=== PATIENT | female | born 1955 | race Caucasian/White ===

== ENCOUNTER → 2016-08-04 | Outpatient (CLI) | payer MEDICARE | LOC: KOH-I 11:04 | DX: J11.00 Influenza due to unidentified influenza virus with unspecified type of pneumonia (principal); J98.09 Other diseases of bronchus, not elsewhere classified | CPT/HCPCS: 71020 ==

== ENCOUNTER → 2016-08-31 | Outpatient (CLI) | payer MEDICARE ==
[~2016-08-31] VITALS: Ht 177.8 cm; Wt 93.0 kg
== END ==
LOC: OPSV 14:23
DX: D50.9 Iron deficiency anemia, unspecified (principal)
CPT/HCPCS: 96365; J1756; J7050

== ENCOUNTER → 2016-09-07 | Outpatient (CLI) | payer MEDICARE ==
[~2016-09-07] VITALS: Ht 177.8 cm; Wt 93.0 kg
== END ==
LOC: OPSV 14:58
DX: D50.9 Iron deficiency anemia, unspecified (principal)
CPT/HCPCS: 96365; J1756; J7050

== ENCOUNTER → 2016-10-01 | Outpatient (CLI) | payer MEDICARE ==
[~2016-10-01] VITALS: Ht 177.8 cm; Wt 93.0 kg
== END ==
LOC: OPSV 15:00
DX: D50.9 Iron deficiency anemia, unspecified (principal)
CPT/HCPCS: 96365; J1756; J7050

== ENCOUNTER 2021-05-04 07:13 | Emergency (ER) | payer MEDICARE, BC ==
[~2021-05-04 07:13] MED LIST: ACCUPRIL 10 MG10 MG PO; ASPIRIN81 MG PO; AUGMENTIN 875-1 EACH PO; BUPROPION XL150 MG PO; CARAFATE1 GM PO; CYMBALTA60 MG PO; DIABETA 2.5 MG2.5 MG PO; ELIQUIS5 MG PO; GLIPIZIDE5 MG PO; GLUCOPHAGE1000 MG PO; INVOKANA300 MG PO; LEVAQUIN500 MG PO; LEVOFLOXACIN250 MG PO; LIPITOR TAB 1010 MG PO; LIPITOR10 MG PO; LOPRESSOR 25 MG25 MG PO; LOW DOSE ASPIRI81 MG PO; METFORMIN HCL1000 MG PO; PANTOPRAZOLE SO40 MG PO; PROTONIX40 MG PO; PROZAC20 MG PO; SOTALOL80 MG PO; SYNTHROID25 MCG PO; TESSALON PERLE100 MG PO; TYLENOL #3 PO; TYLENOL W/CODEIN1 E1 PO; VENTOLIN HFA 66.7 GM INH; WELLBUTRIN XL150 MG PO; ZOFRAN ODT 4 MG4 MG SL; ZOLOFT100 MG PO
== END 2021-05-04 09:23 | disposition home or self-care (01) ==
LOC: ER1 07:13
DX: U07.1 COVID-19 (principal); E11.9 Type 2 diabetes mellitus without complications; I11.9 Hypertensive heart disease without heart failure; Z90.710 Acquired absence of both cervix and uterus
CPT/HCPCS: 99283; U0002

== ENCOUNTER → 2021-05-05 | Outpatient (CLI) | payer MEDICARE, BC ==
[~2021-05-05] VITALS: Ht 177.8 cm; Wt 78.5 kg
== END ==
LOC: EROP 13:21
DX: U07.1 COVID-19 (principal); Z23 Encounter for immunization; E11.9 Type 2 diabetes mellitus without complications; I25.10 Atherosclerotic heart disease of native coronary artery without angina pectoris; Z85.3 Personal history of malignant neoplasm of breast; I10 Essential (primary) hypertension
CPT/HCPCS: M0247; Q0247

== ENCOUNTER → 2021-09-02 | Outpatient (CLI) | payer MEDICARE, BC | LOC: ECHO 08-31 10:30 | DX: I10 Essential (primary) hypertension (principal); I47.1 Supraventricular tachycardia; R01.1 Cardiac murmur, unspecified; I27.20 Pulmonary hypertension, unspecified; I07.1 Rheumatic tricuspid insufficiency; Z95.818 Presence of other cardiac implants and grafts | CPT/HCPCS: ECHO; 36415; 93306 ==

== ENCOUNTER → 2021-09-30 | Outpatient (CLI) | payer MEDICARE, BC | LOC: HEART 5 10:39 | DX: I47.1 Supraventricular tachycardia (principal) ==

== ENCOUNTER → 2021-10-26 | Outpatient (CLI) | payer MEDICARE, BC | LOC: HEART 5 10-05 07:45 | DX: I20.8 Other forms of angina pectoris (principal) | CPT/HCPCS: 78452; A9502; J2785 ==

== ENCOUNTER → 2022-01-13 | Outpatient (CLI) | payer MEDICARE, BC ==
[~2022-01-13] MED LIST changes: +ASPIRIN EC81 MG PO; +BUPROPION XL450 MG PO; +HYDROCHLOROTH12.5 MG PO; +ISOSORBIDE MONO30 MG PO; +OZEMPIC1 MG/0.71 SQ; +RANEXA500 MG PO; +VALSARTAN160 MG PO
[2022-01-13 14:55] LABS: HEMOGLOBIN 11.3 gm/dl (12.3-15.3); RED BLOOD COUNT 3.6 M/UL (4.00-5.10); WHITE BLOOD COUNT 5.1 K/UL (4.5-11.0)
[2022-01-13 15:17] LABS: BUN/CREATININE RATIO 24 (0-10)
== END ==
LOC: RAD 14:19
PROVIDERS: Internal Medicine Cardiovascular Disease
DX: I25.118 Atherosclerotic heart disease of native coronary artery with other forms of angina pectoris (principal); R94.39 Abnormal result of other cardiovascular function study; I10 Essential (primary) hypertension; R06.02 Shortness of breath
CPT/HCPCS: 36415; 71046; 80048; 85025

== ENCOUNTER → 2022-01-15 | Outpatient (CLI) | payer MEDICARE, BC | END | disposition home or self-care (01) | LOC: CATH 08:11 | DX: I25.118 Atherosclerotic heart disease of native coronary artery with other forms of angina pectoris (principal); I10 Essential (primary) hypertension; E78.5 Hyperlipidemia, unspecified; E03.9 Hypothyroidism, unspecified; I35.0 Nonrheumatic aortic (valve) stenosis; E11.9 Type 2 diabetes mellitus without complications; Z98.61 Coronary angioplasty status; Z79.82 Long term (current) use of aspirin; Z79.899 Other long term (current) drug therapy | CPT/HCPCS: 99152; 99153; C1760; C1769; C1894; J1644; J2250; J3010; Q9967 ==